=== PATIENT | female | born 1955 | race Two or more races ===

== ENCOUNTER 2024-03-06 08:44 | Emergency (ER) | payer MEDICARE, BC, SELFPAY ==
[2024-03-06 08:44] VITALS: BMI 28.3
--- NOTE | 2024-03-06 08:48 | EKG_ITS ---
[facility] Test Date: 2024-03-06 Pat Name: ISRAEL CAI Department: Room: - Gender: Female Etl [employer]form[employer] Developer: : 1955 Requested By: ED Temporary Provider Order Number: [id number] Reading MD: ED Temporary Provider Measurements Intervals [place] Rate: 69 P: 33 PA: 173 QRS: 0 QRSD: 73 T: 18 QT: 356 QTc: 383 Interpretive Statements SINUS RHYTHM LOW QRS VOLTAGE IN PRECORDIAL LEADS [QRS DEFLECTION < 1.0 mV IN CHEST LEADS] POSSIBLE ANTERIOR MYOCARDIAL INFARCTION , OF INDETERMINATE AGE [30 ms Q WAVE IN V3/V4, OR R < 0.2 mV IN V4] Compared to ECG 10/16/2021 12:11:19 Low QRS voltage now present Myocardial infarct finding now present /store/S0/[id number].pdf
[2024-03-06 09:06] VITALS: BP 128/68; PULSE 71; RESP 19; TEMP 37.2; O2SAT 98
--- NOTE | 2024-03-06 09:13 | XR_ITS ---
Examination: PA chest single view Technique: Upright PA chest single view Exam date and time: March 06, 2024 0928 hrs. Comparison October 03, 2023 Indications: Shortness of breath chest pressure beginning 2 days ago. Findings: Mild prominence of ventricle Mild vascular congestion No lobar pneumonia or pulmonary edema Impression: Mild vascular congestion
--- NOTE | 2024-03-06 09:14 | PD.EDRME ---
Rapid Medical Screening Exam RME Arrival date/time: 03/06/24 08:44 Chief Complaint: Chest Pain Time Seen by Provider: 03/06/24 09:06 Vital signs: Vital Signs Temperature 98.9 F 03/06/24 09:06 Pulse Rate 71 03/06/24 09:06 Respiratory Rate 19 03/06/24 09:06 Blood Pressure 128/68 03/06/24 09:06 Pulse Oximetry (%) 98 03/06/24 09:06 Oxygen Delivery Method Room Air 03/06/24 09:06 RME Narrative: Intermittent mid-sternal chest pressure since 0400 this morning.
[2024-03-06 09:56] LABS: Basophils % (Auto) 0 % (0-2.5); Eosinophils # (Auto) 0.1 Thou/mm3 (0.0-0.5); Eosinophils % (Auto) 1 % (0-10); Hematocrit 38.1 % (36.0-46.0); Hemoglobin 12.8 g/dL (12.0-16.0); Immature Granulocytes % (Auto) 0 % (0-0); Immature Granulocytes Auto 0.02 Thou/mm3 (0.00-0.00); Lymphocytes # (Auto) 1.6 Thou/mm3 (1.0-4.8); Lymphocytes % (Auto) 17 % (10-50); Mean Corpuscular HGB Conc 33.6 g/dl (31.0-37.0); Mean Corpuscular Hemoglobin 30.7 pg (25.0-35.0); Mean Corpuscular Volume 91 fL (80-100); Monocytes # (Auto) 0.7 Thou/mm3 (0.0-0.8); Monocytes % (Auto) 7 % (0-12); Neutrophils # (Auto) 7.2 Thou/mm3 (1.8-7.7); Neutrophils % (Auto) 75 % (37-80); Nucleated Red Blood Cell % 0 /100 WBC (0); Platelet Count 283 Thou/mm3 (140-440); RDW Standard Deviation 44.1 fL (36.4-46.3); Red Blood Count 4.17 Miln/mm3 (4.00-5.20); White Blood Count 9.7 Thou/mm3 (3.6-11.0)
[2024-03-06 10:19] LABS: B-Type Natriuretic Peptide 33 pg/mL (0-100)
[2024-03-06 10:20] LABS: Alanine Aminotransferase 17 U/L (10-49); Albumin, Serum 4.8 gm/dL (3.4-4.8); Albumin/Globulin Ratio 1.8 (1.2-2.2); Alkaline Phosphatase 123 U/L (46-116); Anion Gap 8 (7-16); Aspartate Amino Transferase 19 U/L (0-34); BUN/Creatinine Ratio 19 Ratio (12-20); Bilirubin,Total 0.7 mg/dL (0.3-1.2); Blood Urea Nitrogen 19 mg/dL (9-23); Calcium 9.6 mg/dL (8.3-10.6); Calcium (Corrected) 9.6 mg/dL (8.5-10.1); Carbon Dioxide 26.1 mMol/L (20.0-31.0); Chloride 103 mMol/L (98-107); Estimated Creatinine Clearance 47.5 mL/min (>60); Globulin 2.7 gm/dL (2.3-3.5); Glucose 104 mg/dL (74-106); Osmolality,Calculated 276 (275-295); Potassium 4.2 mMol/L (3.4-5.1); Sodium 137 mMol/L (136-145); Total Protein 7.5 gm/dL (5.7-8.2); Troponin I < 0.002 ng/mL (0.0-0.045); eGFR > 60 See Note
--- NOTE | 2024-03-06 11:12 | EDNOTE_ITS ---
ED General RME/HPI General Chief complaint: Chest Pain Stated complaint: CHEST PRESSURE ON/OFF SINCE 0300 TODAY Time Seen by Provider: 03/06/24 09:06 Arrival date/time: 03/06/24 08:44 CC: Chest pain chest pressure HPI ongoing since 4 AM lasted approximately 45 minutes until 4:45, intermittent in nature 4-5 out of 10 scale maximum currently is absent the patient has a history of a heart attack [address] Damico is her PCP currently she has no pain whatsoever patient denies shortness of breath or difficulty breathing. RME / HPI RME / HPI narrative: Intermittent mid-sternal chest pressure since 0400 this morning. Related Data Home Medications ?Medication ?Instructions ?Recorded ?Confirmed albuterol sulfate 90 mcg/actuation 2 puff PO BID PRN SHORTNESS OF 08/21/09 aerosol inhaler (ProAir HFA) BREATH ##0 beclomethasone dipropionate 40 2 puff PO BID PRN SHORTNESS OF 08/21/09 mcg/actuation aerosol inhaler BREATH ##0 (Qvar) clopidogrel 75 mg tablet (Plavix) 75 mg PO QDAY #0 tabs 06/24/14 aspirin 81 mg chewable tablet 81 mg PO QDAY ##0 07/13/16 atorvastatin 20 mg tablet (Lipitor) 20 mg PO HS #0 tabs 07/13/16 ciprofloxacin HCl 500 mg tablet 500 mg PO BID #0 tabs 07/13/16 folic acid 1 mg tablet 1 mg PO QDAY #0 tabs 07/13/16 nitroglycerin 0.4 mg sublingual 0.4 mg SL PRN PRN ANXIETY #0 tabs 07/13/16 tablet (Nitrostat) Previous Rx's ?Medication ?Instructions ?Recorded omeprazole 20 mg capsule,delayed 20 mg PO QDAY PRN GERD #30 caps 06/22/14 release tramadol 50 mg tablet (Ultram) 1 - 2 tab PO Q6HR PRN ABDOMINAL 07/13/16 PAIN #20 tabs azelastine 137 mcg (0.1 %) nasal 2 spray intranasal QDAY #30 mL 08/08/19 spray losartan 25 mg tablet 25 mg PO QDAY #30 tabs 10/16/21 metoclopramide HCl 5 mg tablet 5 mg PO BID 30 days #60 tabs 05/02/22 (Reglan) pantoprazole 40 mg tablet,delayed 40 mg PO BID 30 days #60 tabs 05/02/22 release (Protonix) Allergies Allergy/AdvReac Type Severity Reaction Status Date / Time codeine Allergy Severe RASH Verified 03/06/24 08:47 Review of Systems Review of Systems Narrative Review of Systems: GEN: No fever, no chills, no weight loss EYES: No discharge, no visual changes, no pain HEENT: No ear pain, no congestion, no sore throat PULM: No shortness of breath, no cough, no congestion CV: + chest pain, no dyspnea on exertion, no palpitations GI: No nausea, no vomiting, no diarrhea, no pain, no constipation : No frequency, no urgency, no dysuria MUSC/SKEL: No joint pain, no back pain SKIN: No rash PSYCH: No hallucinations, no depression HEME/LYMPH: No easy bleeding or bruising tendencies NEURO: No weakness, no headache Past Medical History Past Medical History NEUROLOGIC: Positive Neurological Disorders and Seizures CARDIAC: Positive Cardiac Disorders, Myocardial Infarction, Hypercholesterolemia and Hypertension; Negative Congestive Heart Failure RESPIRATORY: Positive Asthma; Negative Chronic Obstructive Pulmonary Disease (COPD) GASTROINTESTINAL: Positive Gastrointestinal Disorders (esophageal stricture) and Hiatal Hernia GENITOURINARY: Positive Genitourinary Disorders (pt does not know name of disease); Negative Renal Disease REPRODUCTIVE: Positive Previous Pregnancies MUSCULOSKELETAL: Negative Musculoskeletal Disorders ENDOCRINE: Negative Endocrine Disorders, Diabetes Mellitus Type 1 or Diabetes Mellitus Type 2 (prediabetic) HEMATOLOGIC: Positive Blood Disorders and Clotting Problems OTHER HISTORY: Positive Chicken Pox and Measles; Negative Blood Transfusions, Anesthesia Reactions or Cancer Surgical History SURGICAL: Positive Lumpectomy (left) and Hysterectomy Social History SMOKING STATUS: Never smoker SUBSTANCE USE: does not use ED Exam Narrative Physical exam: [General: Not in any acute distress Head normocephalic HEENT: Within acceptable limits Neck is supple nontender Chest equal chest rise nontender to palpation Respiratory: Clear to auscultation no wheezes crackles or rubs CV: Rate rhythm is regular no murmurs rubs or clicks Abdomen is distended secondary to body habitus soft nontender no masses positive bowel sounds all 4 quadrants Back: No CVA tenderness no spinous process tenderness from cervical spine thoracic and lumbar spine Skin: Intact no petechiae rash induration ulceration or crepitus Extremities: Moving all extremity against resistance cap refill less than 2 seconds neurosensory intact Neuro: Awake alert oriented x3 Glascow coma 15 no focal deficits] Course Quality Measures none Orders Category Date Time Status EKG (ED ONLY) *Do not use* NOW Care 03/06/24 08:48 Completed CXR [XR chest 1V] Stat Exams 03/06/24 09:13 Completed EKG (ED Only) Stat Exams 03/06/24 08:48 Draft BNP [B-Type Natriuretic Peptide] Stat Lab 03/06/24 09:44 Completed CBC Stat Lab 03/06/24 09:44 Completed CMP [Comprehensive Metabolic Panel] Stat Lab 03/06/24 09:44 Completed Troponin I Stat Lab 03/06/24 09:44 Completed Troponin I Stat Lab 03/06/24 11:22 Completed Vital Signs Vital signs: Vital Signs Temperature 98.9 F 03/06/24 09:06 Pulse Rate 71 03/06/24 09:06 Respiratory Rate 19 03/06/24 09:06 Blood Pressure 128/68 03/06/24 09:06 Pulse Oximetry (%) 98 03/06/24 09:06 Oxygen Delivery Method Room Air 03/06/24 09:06 [facility] Patient data External records reviewed:: [facility] previous records Clinical information provided by:: patient Social determinants that could affect healthcare access:: none Patient has the following chronic illnesses:: Diabetes hypertension reported mild heart attack 10 years ago How is presenting disease/condition affected by chronic disease/condition?: u neffected by Evaluation data The following diagnostics were reviewed and interpreted by me:: lab results, radiology exam(s) and EKG tracing(s) Lab and/or radiology exams considered but not ordered:: EKG performed at 902 shows a ventricular rate of 6 9. Normal 173 QRS of 7 3 QTc of 375 this is sinus rhythm when compared to old EKG of September 2021 there are no significant changes CBC shows no acute leukocytosis anemia thrombocytopenia CMP shows no acute electrolyte imbalances other than mildly elevated glucose, no renal impairment transaminitis or T. bili elevation Troponin is negative BNP is negative Chest x-ray as interpreted by me read by radiology shows some mild vascular congestion Urine is unremarkable. Delta troponin is unremarkable. Interpretation Summary: Chest pain unknown cause patient will be discharged to follow-up with Dr. Damico. Medications Medications considered but not ordered:: None Medication administrations:: None Consultations Consultation(s) initiated? (list below): No Diagnosis Differential Diagnosis ED Complaint MDM: ACS NV pneumonia Most likely diagnosis given after review of the tests above:: Chest pain Admission Indicated Admission indicated?: not indicated Explain why admission is indicated or not indicated:: Stable for outpatient follow-up Admission Request Was there a request for admission?: No Disposition Plan Disposition Plan: Discharge Discharge Attestation Discharge Attestation: The patient and all family members were given an opportunity to ask questions and understood the discharge instructions. Discharge instructions specifically effects, indications for sooner follow up or return to the emergency department, and the expected course of current diagnosis. Patient condition: Stable Medical Decision Making Differential Diagnosis Differential Diagnosis: ACS NV pneumonia Lab Data 03/06/24 09:44 03/06/24 09:44 Labs: Lab Results 03/06/24 03/06/24 Range/Units 09:44 11:22 WBC 9.7 (3.6-11.0) Thou/mm3 RBC 4.17 (4.00-5.20) Miln/mm3 Hgb 12.8 (12.0-16.0) g/dL Hct 38.1 (36.0-46.0) % MCV 91 (80-100) fL MCH 30.7 (25.0-35.0) pg MCHC 33.6 (31.0-37.0) g/dl RDW Std Deviation 44.1 (36.4-46.3) fL Plt Count 283 (140-440) Thou/mm3 Neut % (Auto) 75 (37-80) % Lymph % (Auto) 17 (10-50) % [place] % (Auto) 7 (0-12) % Eos % (Auto) 1 (0-10) % Baso % (Auto) 0 (0-2.5) % Neut # (Auto) 7.2 (1.8-7.7) Thou/mm3 Lymph # (Auto) 1.6 (1.0-4.8) Thou/mm3 [place] # (Auto) 0.7 (0.0-0.8) Thou/mm3 Eos # (Auto) 0.1 (0.0-0.5) Thou/mm3 Baso # (Auto) 0.0 (0.0-0.2) Thou/mm3 Immature Gran # (Auto) 0.02 H (0.00-0.00) Thou/mm3 Absolute Nucleated RBC 0.00 (0.00-0.00) Thou/mm3 Immature Gran % 0 (0-0) % Nucleated RBC % 0 (0) /100 WBC Sodium 137 (136-145) mMol/L Potassium 4.2 (3.4-5.1) mMol/L Chloride 103 (98-107) mMol/L Carbon Dioxide 26.1 (20.0-31.0) mMol/L Anion Gap 8 (7-16) BUN 19 (9-23) mg/dL Creatinine 1.0 (0.6-1.3) mg/dL Estim Creat Clear Calc 47.5 L (>60) mL/min eGFR > 60 (60 - ) See Note BUN/Creatinine Ratio 19 (12-20) Ratio Glucose 104 (74-106) mg/dL Calculated Osmolality 276 (275-295) Calcium 9.6 (8.3-10.6) mg/dL Corrected Calcium 9.6 (8.5-10.1) mg/dL Total Bilirubin 0.7 (0.3-1.2) mg/dL AST 19 (0-34) U/L ALT 17 (10-49) U/L Alkaline Phosphatase 123 H (46-116) U/L Troponin I < 0.002 < 0.002 (0.0-0.045) ng/mL B-Natriuretic Peptide 33 (0-100) pg/mL Total Protein 7.5 (5.7-8.2) gm/dL Albumin 4.8 (3.4-4.8) gm/dL Globulin 2.7 (2.3-3.5) gm/dL Albumin/Globulin Ratio 1.8 (1.2-2.2) Discharge Plan Plan Patient Disposition: HOME (Self Care) Patient condition on transfer: Stable Prescriptions/Referrals Prescriptions/Med Rec: No Action albuterol sulfate [ProAir HFA] 8.5 GM HFA aerosol inhaler 2 puff PO BID PRN (Reason: SHORTNESS OF BREATH) Qty: 0 beclomethasone dipropionate [Qvar] 7.3 GM aerosol 2 puff PO BID PRN (Reason: SHORTNESS OF BREATH) Qty: 0 omeprazole 20 MG capsule,delayed release(DR/EC) 20 mg PO QDAY PRN (Reason: GERD) Qty: 30 1RF clopidogrel [Plavix] 75 MG tablet 75 mg PO QDAY Qty: 0 ciprofloxacin HCl 500 MG tablet 500 mg PO BID Qty: 0 atorvastatin [Lipitor] 20 MG tablet 20 mg PO HS Qty: 0 nitroglycerin [Nitrostat] 0.4 MG tablet, sublingual 0.4 mg SL PRN PRN (Reason: ANXIETY) Qty: 0 aspirin 81 MG tablet,chewable 81 mg PO QDAY Qty: 0 folic acid 1 MG tablet 1 mg PO QDAY Qty: 0 tramadol [Ultram] 50 MG tablet 1 - 2 tab PO Q6HR PRN (Reason: ABDOMINAL PAIN) Qty: 20 0RF Hold Instructions: Resume on 05/03/22. HOLD FOR TODAY, MAY RESUME TOMORROW. Rx Instructions: FOR PAIN, NOT TO EXCEED 8 TABS IN 24 HRS losartan 25 mg tablet 25 mg PO QDAY Qty: 30 0RF azelastine 137 mcg (0.1 %) aerosol,spray 2 spray INTRANASAL QDAY Qty: 30 0RF Rx Instructions: administer into each nostril pantoprazole [Protonix] 40 mg Tablet,Delayed Release (Dr/Ec) 40 mg PO BID 30 Days Qty: 60 2RF metoclopramide HCl [Reglan] 5 mg Tablet 5 mg PO BID 30 Days Qty: 60 2RF Referrals: Grey Alicea MD [Primary Care Provider] - In 1 week Eugenio Damico MD [Physician] - In 1 week Problem List Clinical Impression: Chest pain Patient/Caregiver Discharge Instructions Education Materials: ED Chest Pain, Uncertain Cause Additional Instructions: Take all medications as prescribed 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 Print Language: Chilean Stand Alone Forms: Kasia Award Info., Patient Portal Info Letter, Work/School Release PA/COMPLIANCE DIRECTOR Supervising Physician PA/COMPLIANCE DIRECTOR Supervising Physician: David Ryan ENP
[2024-03-06 11:47] LABS: Troponin I < 0.002 ng/mL (0.0-0.045)
[2024-03-06 11:51] VITALS: BP 149/69; PULSE 60; RESP 15; TEMP 36.8; O2SAT 99
== END 2024-03-06 12:10 | disposition home or self-care (01) ==
PROVIDERS: Physician Assistant; Registered Nurse General Practice; Emergency Provider Emergency Medicine; PCP Specialist
DX: R07.89 Other chest pain (principal); R09.89 Other specified symptoms and signs involving the circulatory and respiratory systems; R94.31 Abnormal electrocardiogram [ECG] [EKG]; I10 Essential (primary) hypertension; I25.2 Old myocardial infarction; E78.00 Pure hypercholesterolemia, unspecified
CPT/HCPCS: 36415; 71045; 80053; 83880; 84484; 85025; 93005; 99283

== ENCOUNTER 2024-03-26 07:14 | Emergency (ER) | payer MEDICARE, SELFPAY ==
--- NOTE | 2024-03-26 | XR_ITS ---
Examination: MRI of brain without intravenous contrast. MRI brain with intravenous contrast. Date and time of exam:March 26, 2024 1230 hrs. Comparison: CT brain scan March 26, 2024 0840 hrs. Indications: Dizziness headaches today, subtle hemorrhage left temporal lobe tip on CT brain scan March 26, 2024 0840 hrs. Technique: Multiple axial and sagittal images of the brain to been obtained. Siemens high-resolution 1.52 Toya short bore scanner utilized. Sagittal sections, T1 weighted images, TR 500, TE 14, are performed. Axial sections proton-density and T2-weighted images have been obtained. Inversion recovery axial images, TR 9260, TE 111, TR 2500. Diffusion weighted images, axial sections, TR 4800, TE 128, B value 1000. Axial sections, ADC map, TR 4800, TE 128. Axial and coronal images were also obtained post 19 cc gadolinium administered intravenously. Findings:: Enlargement of the sella turcica is not present. The optic chiasm and infundibular stalk are not remarkable. There is no localized enlargement of the medulla or aminata. Fourth ventricle and cerebellar tonsils appear normal in position. No subacute area of hemorrhage density is seen. Fourth ventricle is midline. Mass in the cerebellopontine angle region is not evident. 7th and 8th nerve complexes exhibit symmetry Globes are symmetrical Orbital musculature including medial lateral rectus muscles do not exhibit abnormality Increased white matter signal is mild Effacement of the cortical sulcal markings is not identified. Mass effect upon the ventricular system is not identified. Diffusion-weighted images demonstrate no focus of restricted diffusion Contrast images demonstrate no abnormal enhancement Impression: Negative for acute hemorrhage, mass effect or midline shift No acute infarct No definite hemorrhage is confirmed in the temporal lobe tip on the FLAIR or T1-weighted images I would still recommend close clinical observation and repeat CT brain scan in 24 hours
--- NOTE | 2024-03-26 | XR_ITS ---
Examination: MR brain with intravenous contrast Exam date and time: March 26, 2022 1251 hrs. Comparison: CT brain scan March 26, 2024 0840 hrs. Indications: Headache dizziness today, suspicious for subarachnoid hemorrhage left temporal lobe tip on CT brain scan today Technique And Findings: Multiple MRA images brain post intravenous administration 19 cc gadolinium 3-D reconstructions, 3-D post processing maximum intensity projection images Findings: Satisfactory filling M1 segments middle cerebral arteries middle cerebral artery trifurcation vessels, basilar artery, posterior cerebral branches as well as anterior cerebral arteries No cerebral aneurysm noted No arterial spasm Impression: No cerebral aneurysm or arterial spasm noted
[2024-03-26 07:52] VITALS: BP 126/55; PULSE 65; RESP 16; TEMP 36.9; O2SAT 98; BMI 25.7
--- NOTE | 2024-03-26 08:20 | XR_ITS ---
Examination: CT brain head without contrast. 2-D sagittal coronal reconstructions Date and time of exam:March 26, 2024 0840 hrs. Indications: Onset headache this morning Comparison: June 02, 2021 CTDI: vol (mGy):47 DLP: (mGycm):926 Technique: Multiple CT axial sections of the brain have been obtained, 5 mm slice thickness. Contrast has not been administered. 2-D sagittal, coronal reconstructions have been obtained Low dose protocols were performed. One or more of the following dose reduction techniques were used; automated exposure control, adjustment of the mA and/or KV according to patient size, use of iterative reconstruction technique. Findings: No significant ventricular enlargement. Subtle hyperdensity at the left temporal lobe tip, axial image 27, sagittal image 13 No mass effect or midline shift Basal cisterns are not remarkable. Fourth ventricle is midline. Cranial vault intact. Impression: Suspicious for subarachnoid hemorrhage at the left temporal lobe tip, axial image 27 Recommend brain MRI MRA follow-up pre and postcontrast
--- NOTE | 2024-03-26 08:21 | PD.EDHA ---
ED Headache RME/HPI General Chief Complaint: Headache Stated Complaint: SHOOTING LEFT HEAD PAIN; NO MEDS TAKEN Time Seen by Provider: 03/26/24 08:20 Arrival date/time: 03/26/24 07:14 RME / HPI RME / HPI Narrative: 68-year-old female patient presents emergency department with complaint of shooting pain to the left side head that started at 4 AM this morning. Patient denies ever having a pain like this. Patient denies phonophobia or photophobia. Patient denies unusual stress at home. Patient denies numbness and tingling to bilateral upper extremity. Patient denies neck pain. Patient denies trauma. Patient denies focal weakness. Patient states she currently has no pain but when the shooting pain occurs she rates it as an 8 out of 10. Related Data Home Medications ?Medication ?Instructions ?Recorded ?Confirmed albuterol sulfate 90 mcg/actuation 2 puff PO BID PRN SHORTNESS OF 08/21/09 aerosol inhaler (ProAir HFA) BREATH ##0 beclomethasone dipropionate 40 2 puff PO BID PRN SHORTNESS OF 08/21/09 mcg/actuation aerosol inhaler BREATH ##0 (Qvar) clopidogrel 75 mg tablet (Plavix) 75 mg PO QDAY #0 tabs 06/24/14 aspirin 81 mg chewable tablet 81 mg PO QDAY ##0 07/13/16 atorvastatin 20 mg tablet (Lipitor) 20 mg PO HS #0 tabs 07/13/16 ciprofloxacin HCl 500 mg tablet 500 mg PO BID #0 tabs 07/13/16 folic acid 1 mg tablet 1 mg PO QDAY #0 tabs 07/13/16 nitroglycerin 0.4 mg sublingual 0.4 mg SL PRN PRN ANXIETY #0 tabs 07/13/16 tablet (Nitrostat) Previous Rx's ?Medication ?Instructions ?Recorded omeprazole 20 mg capsule,delayed 20 mg PO QDAY PRN GERD #30 caps 06/22/14 release tramadol 50 mg tablet (Ultram) 1 - 2 tab PO Q6HR PRN ABDOMINAL 07/13/16 PAIN #20 tabs azelastine 137 mcg (0.1 %) nasal 2 spray intranasal QDAY #30 mL 08/08/19 spray losartan 25 mg tablet 25 mg PO QDAY #30 tabs 10/16/21 metoclopramide HCl 5 mg tablet 5 mg PO BID 30 days #60 tabs 05/02/22 (Reglan) pantoprazole 40 mg tablet,delayed 40 mg PO BID 30 days #60 tabs 05/02/22 release (Protonix) Allergies Allergy/AdvReac Type Severity Reaction Status Date / Time codeine Allergy Severe RASH Verified 03/26/24 07:15 Course Orders Category Date Time Status CT head/brain wo con Stat Exams 03/26/24 08:20 Completed Vital Signs Vital signs: Vital Signs Temperature 98.5 F 03/26/24 07:52 Pulse Rate 65 03/26/24 07:52 Respiratory Rate 16 03/26/24 07:52 Blood Pressure 126/55 L 03/26/24 07:52 Pulse Oximetry (%) 98 03/26/24 07:52 Oxygen Delivery Method Room Air 03/26/24 07:52 Discharge Plan Prescriptions/Referrals Prescriptions/Med Rec: No Action albuterol sulfate [ProAir HFA] 8.5 GM HFA aerosol inhaler 2 puff PO BID PRN (Reason: SHORTNESS OF BREATH) Qty: 0 beclomethasone dipropionate [Qvar] 7.3 GM aerosol 2 puff PO BID PRN (Reason: SHORTNESS OF BREATH) Qty: 0 omeprazole 20 MG capsule,delayed release(DR/EC) 20 mg PO QDAY PRN (Reason: GERD) Qty: 30 1RF clopidogrel [Plavix] 75 MG tablet 75 mg PO QDAY Qty: 0 ciprofloxacin HCl 500 MG tablet 500 mg PO BID Qty: 0 atorvastatin [Lipitor] 20 MG tablet 20 mg PO HS Qty: 0 nitroglycerin [Nitrostat] 0.4 MG tablet, sublingual 0.4 mg SL PRN PRN (Reason: ANXIETY) Qty: 0 aspirin 81 MG tablet,chewable 81 mg PO QDAY Qty: 0 folic acid 1 MG tablet 1 mg PO QDAY Qty: 0 tramadol [Ultram] 50 MG tablet 1 - 2 tab PO Q6HR PRN (Reason: ABDOMINAL PAIN) Qty: 20 0RF Hold Instructions: Resume on 05/03/22. HOLD FOR TODAY, MAY RESUME TOMORROW. Rx Instructions: FOR PAIN, NOT TO EXCEED 8 TABS IN 24 HRS losartan 25 mg tablet 25 mg PO QDAY Qty: 30 0RF azelastine 137 mcg (0.1 %) aerosol,spray 2 spray INTRANASAL QDAY Qty: 30 0RF Rx Instructions: administer into each nostril pantoprazole [Protonix] 40 mg Tablet,Delayed Release (Dr/Ec) 40 mg PO BID 30 Days Qty: 60 2RF metoclopramide HCl [Reglan] 5 mg Tablet 5 mg PO BID 30 Days Qty: 60 2RF Referrals: Grey Alicea MD [Primary Care Provider] - In 1 week Patient/Caregiver Discharge Instructions Print Language: Portuguese
--- NOTE | 2024-03-26 09:24 | PD.EDRME ---
Rapid Medical Screening Exam RME Arrival date/time: 03/26/24 07:14 Chief Complaint: Headache Time Seen by Provider: 03/26/24 08:20 Vital signs: Vital Signs Temperature 98.5 F 03/26/24 07:52 Pulse Rate 65 03/26/24 07:52 Respiratory Rate 16 03/26/24 07:52 Blood Pressure 126/55 L 03/26/24 07:52 Pulse Oximetry (%) 98 03/26/24 07:52 Oxygen Delivery Method Room Air 03/26/24 07:52 RME Narrative: 68-year-old female patient presents emergency department with complaint of shooting pain to the left side head that started at 4 AM this morning. Patient denies ever having a pain like this. Patient denies phonophobia or photophobia. Patient denies unusual stress at home. Patient denies numbness and tingling to bilateral upper extremity. Patient denies neck pain. Patient denies trauma. Patient denies focal weakness. Patient states she currently has no pain but when the shooting pain occurs she rates it as an 8 out of 10.
--- NOTE | 2024-03-26 11:02 | EDNOTE_ITS ---
ED Headache RME/HPI General Chief Complaint: Headache Stated Complaint: SHOOTING LEFT HEAD PAIN; NO MEDS TAKEN Time Seen by Provider: 03/26/24 08:20 Arrival date/time: 03/26/24 07:14 RME / HPI RME / HPI Narrative: 68-year-old female patient presents emergency department with complaint of shooting pain to the left side head that started at 4 AM this morning. Patient denies ever having a pain like this. Patient denies phonophobia or photophobia. Patient denies unusual stress at home. Patient denies numbness and tingling to bilateral upper extremity. Patient denies neck pain. Patient denies trauma. Patient denies focal weakness. Patient states she currently has no pain but when the shooting pain occurs she rates it as an [address] LUZ ELENA SANTILLAN ED EVALUATION: 68 year old female presents to the Emergency Department with complaint of left- sided headache onset 4 AM this morning. Pain is described as shooting pain and rated mild to moderate in severity. Patient denies any of the following: fevers, chills, vomiting, diarrhea, dysuria, gait problems, fall, injury, loss of consciousness, or any other symptoms at this time. PMHx: Peripheral vascular disease, hypertension, seizures, GERD, SC, hypercholesterolemia. Hysterectomy and cholecystectomy. Social Hx: No tobacco, alcohol, or substance use. Related Data Home Medications ?Medication ?Instructions ?Recorded ?Confirmed albuterol sulfate 90 mcg/actuation 2 puff PO BID PRN SHORTNESS OF 08/21/09 aerosol inhaler (ProAir HFA) BREATH ##0 beclomethasone dipropionate 40 2 puff PO BID PRN SHORTNESS OF 08/21/09 mcg/actuation aerosol inhaler BREATH ##0 (Qvar) clopidogrel 75 mg tablet (Plavix) 75 mg PO QDAY #0 tabs 06/24/14 aspirin 81 mg chewable tablet 81 mg PO QDAY ##0 07/13/16 atorvastatin 20 mg tablet (Lipitor) 20 mg PO HS #0 tabs 07/13/16 ciprofloxacin HCl 500 mg tablet 500 mg PO BID #0 tabs 07/13/16 folic acid 1 mg tablet 1 mg PO QDAY #0 tabs 07/13/16 nitroglycerin 0.4 mg sublingual 0.4 mg SL PRN PRN ANXIETY #0 tabs 07/13/16 tablet (Nitrostat) Previous Rx's ?Medication ?Instructions ?Recorded omeprazole 20 mg capsule,delayed 20 mg PO QDAY PRN GERD #30 caps 06/22/14 release tramadol 50 mg tablet (Ultram) 1 - 2 tab PO Q6HR PRN ABDOMINAL 07/13/16 PAIN #20 tabs azelastine 137 mcg (0.1 %) nasal 2 spray intranasal QDAY #30 mL 08/08/19 spray losartan 25 mg tablet 25 mg PO QDAY #30 tabs 10/16/21 metoclopramide HCl 5 mg tablet 5 mg PO BID 30 days #60 tabs 05/02/22 (Reglan) pantoprazole 40 mg tablet,delayed 40 mg PO BID 30 days #60 tabs 05/02/22 release (Protonix) Allergies Allergy/AdvReac Type Severity Reaction Status Date / Time codeine Allergy Severe RASH Verified 03/26/24 07:15 Review of Systems Review of Systems Systems Reviewed: All systems reviewed, normal except as documented Narrative Review of Systems: GEN: No fever, no chills, no weight loss EYES: No discharge, no visual changes, no pain HEENT: No ear pain, no congestion, no sore throat PULM: No shortness of breath, no cough, no congestion CV: No chest pain, no dyspnea on exertion, no palpitations GI: No nausea, no vomiting, no diarrhea, no pain, no constipation : No frequency, no urgency and no dysuria MUSC/SKEL: No joint pain, no back pain SKIN: No rash PSYCH: No hallucinations, no depression HEME/LYMPH: No easy bleeding or bruising tendencies NEURO: No weakness, + left-sided headache Past Medical History Past Medical History NEUROLOGIC: Positive Neurological Disorders and Seizures CARDIAC: Positive Cardiac Disorders, Myocardial Infarction, Hypercholesterolemia and Hypertension; Negative Congestive Heart Failure RESPIRATORY: Positive Asthma; Negative Chronic Obstructive Pulmonary Disease (COPD) GASTROINTESTINAL: Positive Gastrointestinal Disorders and Hiatal Hernia GENITOURINARY: Positive Genitourinary Disorders; Negative Renal Disease REPRODUCTIVE: Positive Previous Pregnancies MUSCULOSKELETAL: Negative Musculoskeletal Disorders ENDOCRINE: Negative Endocrine Disorders, Diabetes Mellitus Type 1 or Diabetes Mellitus Type 2 HEMATOLOGIC: Positive Blood Disorders and Clotting Problems OTHER HISTORY: Positive Chicken Pox and Measles; Negative Blood Transfusions, Anesthesia Reactions or Cancer Surgical History SURGICAL: Positive Lumpectomy and Hysterectomy Social History SMOKING STATUS: Never smoker SUBSTANCE USE: does not use ALCOHOL: Never ED Exam Narrative Physical exam: GENERAL APPEARANCE: Well hydrated, well nourished, in no acute distress. VITALS: All vitals were reviewed and the pulse ox is 100% on room air which is normal according to my interpretation. HEENT: Normocephalic, atramatic, EOMI, EACs are patent. There is no bulge or retraction. Throat without erythema or exudate. Moist oromucosa. No jaundice NECK: Supple, no JVD or bruits. CARDIOVASCULAR: Heart regular without S3-S4 or murmur. No rubs or gallops. LUNGS/CHEST: Clear to auscultation bilaterally. No rales, rhonchi, or wheezing. Normal inspection. ABDOMEN: Soft, nontender, with normal bowel sounds. No pulsatile masses. No rebound, rigidity, or guarding. No incarcerated hernia. Normal inspection and palpation. EXTREMITIES: No edema, clubbing, or cyanosis. Intact CSM. Normal inspection and palpation. SKIN: Warm and dry without rashes. Normal inspection. MUSCULOSKELETAL: No gross deformity, full ROM all extremities. Normal inspection. NEURO: Alert and oriented x3. Cranial nerves II through XII grossly intact. There are no other motor or sensory deficits noted. PSYCHIATRIC: Normal mood and affect. No psychosis. Course Quality Measures none Orders Category Date Time Status MRI Screening NOW Care 03/26/24 11:08 Active NPO NOW Care 03/26/24 11:09 Active Diet NPO (NOW) Diet 03/26/24 11:[address] head/brain wo con Stat Exams 03/26/24 08:20 Completed MR angio head w con Stat Exams 03/26/24 Completed MR head/brain wo/w con Stat Exams 03/26/24 Completed BMP [Basic Metabolic Panel] Stat Lab 03/26/24 11:23 Completed CBC Stat Lab 03/26/24 11:23 Completed PT [Prothrombin Time with INR] Stat Lab 03/26/24 11:23 Completed PTT [Partial Thromboplastin Time] Stat Lab 03/26/24 11:23 Completed Sodium Chloride 0.9% 1000 ml [Ns] 1,000 ml Med 03/26/24 11:05 Active IV 125 mls/hr Vital Signs Vital signs: Vital Signs Temperature 98.5 F 03/26/24 07:52 Pulse Rate 65 03/26/24 07:52 Respiratory Rate 16 03/26/24 07:52 Blood Pressure 126/55 L 03/26/24 07:52 Pulse Oximetry (%) 98 03/26/24 07:52 Oxygen Delivery Method Room Air 03/26/24 07:52 Headache MDM Narrative MDM Narrative:: I, Daniela Hendrix, am scribing for and in the presence of Dr. Sarmiento. CBC negative. BNP negative. CT head interpreted by me: No bleed. No mass. No shift. No swelling. Normal ventricle. Normal bones. And because the patient was recommended by Dr. Paul Haq, radiologist, to have a MRI of the head and MRA of the head. And she has been waiting here all day long to have the result done. And result came back negative for acute bleed mass shift or swelling. However according to Dr. Paul Haq, he still recommended a [address] brain. I spoke to the patient and daughter and both of them are very cooperative and they would mind coming back tomorrow in 24 hours for recheck and repeat his CAT scan of the brain. Patient data External records reviewed:: [facility] previous records (Reviewed last ED visit dated 03/06/24, discharged with the following: Chest pain.) Clinical information provided by:: patient and spouse Social determinants that could affect healthcare access:: none Patient has the following chronic illnesses:: Peripheral vascular disease, hypertension, seizures, GERD, SC, hypercholesterolemia. Hysterectomy and cholecystectomy. How is presenting disease/condition affected by chronic disease/condition?: exac erbated by Evaluation data The following diagnostics were reviewed and interpreted by me:: lab results and radiology exam(s) Lab and/or radiology exams considered but not ordered:: none Interpretation Summary: Procedure(s): CT head/brain wo [facility] Accession Number(s): [id number] cc: Grey Alicea MD; Paul Haq MD; Jacquelin Abbasi PA-C~ Examination: CT brain head without contrast. 2-D sagittal coronal reconstructions Date and time of exam:March 26, 2024 0840 hrs. Indications: Onset headache this morning Comparison: June 02, 2021 CTDI: vol (mGy):47 DLP: (mGycm):926 Technique: Multiple CT axial sections of the brain have been obtained, 5 mm slice thickness. Contrast has not been administered. 2-D sagittal, coronal reconstructions have been obtained Low dose protocols were performed. One or more of the following dose reduction techniques were used; automated exposure control, adjustment of the mA and/or KV according to patient size, use of iterative reconstruction technique. Findings: No significant ventricular enlargement. Subtle hyperdensity at the left temporal lobe tip, axial image 27, sagittal image 13 No mass effect or midline shift Basal cisterns are not remarkable. Fourth ventricle is midline. Cranial vault intact. Impression: Suspicious for subarachnoid hemorrhage at the left temporal lobe tip, axial image 27 Recommend brain MRI MRA follow-up pre and postcontrast Dictated By: Paul Haq MD Procedure(s): MR angio head w con Accession Number(s): [id number] cc: Grey Alicea MD; Paul Haq MD; Jean Carlos Sarmiento MD~ Examination: MR brain with intravenous contrast Exam date and time: March 26, 2022 1251 hrs. Comparison: CT brain scan March 26, 2024 0840 hrs. Indications: Headache dizziness today, suspicious for subarachnoid hemorrhage left temporal lobe tip on CT brain scan today Technique And Findings: Multiple MRA images brain post intravenous administration 19 cc gadolinium 3-D reconstructions, 3-D post processing maximum intensity projection images Findings: Satisfactory filling M1 segments middle cerebral arteries middle cerebral artery trifurcation vessels, basilar artery, posterior cerebral branches as well as anterior cerebral arteries No cerebral aneurysm noted No arterial spasm Impression: No cerebral aneurysm or arterial spasm noted Dictated By: Paul Haq MD Procedure(s): MR head/brain wo/w con Accession Number(s): [id number] cc: Grey Alicea MD; Paul Haq MD; Jean Carlos Sarmiento MD~ Examination: MRI of brain without intravenous contrast. MRI brain with intravenous contrast. Date and time of exam:March 26, 2024 1230 hrs. Comparison: CT brain scan March 26, 2024 0840 hrs. Indications: Dizziness headaches today, subtle hemorrhage left temporal lobe tip on CT brain scan March 26, 2024 0840 hrs. Technique: Multiple axial and sagittal images of the brain to been obtained. Siemens high-resolution 1.52 Toya short bore scanner utilized. Sagittal sections, T1 weighted images, TR 500, TE 14, are performed. Axial sections proton-density and T2-weighted images have been obtained. Inversion recovery axial images, TR 9260, TE 111, TR 2500. Diffusion weighted images, axial sections, TR 4800, TE 128, B value 1000. Axial sections, ADC map, TR 4800, TE 128. Axial and coronal images were also obtained post 19 cc gadolinium administered intravenously. Findings:: Enlargement of the sella turcica is not present. The optic chiasm and infundibular stalk are not remarkable. There is no localized enlargement of the medulla or aminata. Fourth ventricle and cerebellar tonsils appear normal in position. No subacute area of hemorrhage density is seen. Fourth ventricle is midline. Mass in the cerebellopontine angle region is not evident. 7th and 8th nerve complexes exhibit symmetry Globes are symmetrical Orbital musculature including medial lateral rectus muscles do not exhibit abnormality Increased white matter signal is mild Effacement of the cortical sulcal markings is not identified. Mass effect upon the ventricular system is not identified. Diffusion-weighted images demonstrate no focus of restricted diffusion Contrast images demonstrate no abnormal enhancement Impression: Negative for acute hemorrhage, mass effect or midline shift No acute infarct No definite hemorrhage is confirmed in the temporal lobe tip on the FLAIR or T1-weighted images I would still recommend close clinical observation and repeat CT brain scan in 24 hours Dictated By: Paul Haq MD Medications / Prescriptions Medications or Prescriptions considered but not ordered:: none Medication administrations:: Medication Administration History Sodium Chloride (Ns) 1,000 mls @ 125 mls/hr IV .Q8H ONE Stop: 03/26/24 19:04 Last Admin: 03/26/24 11:49 Dose: 125 mls/hr Documented By: ED see above Consultations Consultation(s) initiated? (list below): No Diagnosis Differential diagnosis headache: migraine, subarachnoid hemorrhage, headache and sinusitis Most likely diagnosis given after review of the tests above:: Headache Admission Indicated Admission indicated?: not indicated Admission Request Was there a request for admission?: No Disposition Plan Disposition Plan: Discharge Discharge Attestation Discharge Attestation: The patient and all family members were given an opportunity to ask questions an d understood the discharge instructions. Discharge instructions specifically effects, indications for sooner follow up or return to the emergency department, and the expected course of current diagnosis. Patient condition: Stable Discharge Plan Plan Patient Disposition: HOME (Self Care) Disposition Comment: Stable to go home Prescriptions/Referrals Prescriptions/Med Rec: No Action albuterol sulfate [ProAir HFA] 8.5 GM HFA aerosol inhaler 2 puff PO BID PRN (Reason: SHORTNESS OF BREATH) Qty: 0 beclomethasone dipropionate [Qvar] 7.3 GM aerosol 2 puff PO BID PRN (Reason: SHORTNESS OF BREATH) Qty: 0 omeprazole 20 MG capsule,delayed release(DR/EC) 20 mg PO QDAY PRN (Reason: GERD) Qty: 30 1RF clopidogrel [Plavix] 75 MG tablet 75 mg PO QDAY Qty: 0 ciprofloxacin HCl 500 MG tablet 500 mg PO BID Qty: 0 atorvastatin [Lipitor] 20 MG tablet 20 mg PO HS Qty: 0 nitroglycerin [Nitrostat] 0.4 MG tablet, sublingual 0.4 mg SL PRN PRN (Reason: ANXIETY) Qty: 0 aspirin 81 MG tablet,chewable 81 mg PO QDAY Qty: 0 folic acid 1 MG tablet 1 mg PO QDAY Qty: 0 tramadol [Ultram] 50 MG tablet 1 - 2 tab PO Q6HR PRN (Reason: ABDOMINAL PAIN) Qty: 20 0RF Hold Instructions: Resume on 05/03/22. HOLD FOR TODAY, MAY RESUME TOMORROW. Rx Instructions: FOR PAIN, NOT TO EXCEED 8 TABS IN 24 HRS losartan 25 mg tablet 25 mg PO QDAY Qty: 30 0RF azelastine 137 mcg (0.1 %) aerosol,spray 2 spray INTRANASAL QDAY Qty: 30 0RF Rx Instructions: administer into each nostril pantoprazole [Protonix] 40 mg Tablet,Delayed Release (Dr/Ec) 40 mg PO BID 30 Days Qty: 60 2RF metoclopramide HCl [Reglan] 5 mg Tablet 5 mg PO BID 30 Days Qty: 60 2RF Referrals: Grey Alicea MD [Primary Care Provider] - In 1 week Problem List Clinical Impression: Headache Patient/Caregiver Discharge Instructions Education Materials: Self-Care for Headaches Additional Instructions: Tylenol as needed for ache and pain. Return in [address] hours [address] head [address] As recommended by the radiologist. Return sooner if any problem. In the meantime no heavy exertion. No blood thinner. No heavy lifting. Print Language: Macanese Stand Alone Forms: [employer] Award Info., Patient Portal Info Letter
[2024-03-26 11:07] VITALS: BP 182/70; PULSE 55; RESP 19; TEMP 36.8; O2SAT 100
[2024-03-26 11:32] LABS: Basophils % (Auto) 1 % (0-2.5); Eosinophils # (Auto) 0.1 Thou/mm3 (0.0-0.5); Eosinophils % (Auto) 2 % (0-10); Hematocrit 35.7 % (36.0-46.0); Hemoglobin 11.9 g/dL (12.0-16.0); Immature Granulocytes % (Auto) 0 % (0-0); Immature Granulocytes Auto 0.01 Thou/mm3 (0.00-0.00); Lymphocytes # (Auto) 2.4 Thou/mm3 (1.0-4.8); Lymphocytes % (Auto) 34 % (10-50); Mean Corpuscular HGB Conc 33.3 g/dl (31.0-37.0); Mean Corpuscular Hemoglobin 30.7 pg (25.0-35.0); Mean Corpuscular Volume 92 fL (80-100); Monocytes # (Auto) 0.6 Thou/mm3 (0.0-0.8); Monocytes % (Auto) 9 % (0-12); Neutrophils # (Auto) 3.8 Thou/mm3 (1.8-7.7); Neutrophils % (Auto) 55 % (37-80); Nucleated Red Blood Cell % 0 /100 WBC (0); Platelet Count 257 Thou/mm3 (140-440); RDW Standard Deviation 45.1 fL (36.4-46.3); Red Blood Count 3.88 Miln/mm3 (4.00-5.20); White Blood Count 6.9 Thou/mm3 (3.6-11.0)
[2024-03-26 11:44] LABS: Anion Gap 8 (7-16); BUN/Creatinine Ratio 17 Ratio (12-20); Blood Urea Nitrogen 17 mg/dL (9-23); Carbon Dioxide 25.8 mMol/L (20.0-31.0); Chloride 106 mMol/L (98-107); Glucose 101 mg/dL (74-106); Osmolality,Calculated 280 (275-295); Potassium 4.1 mMol/L (3.4-5.1); Sodium 140 mMol/L (136-145); eGFR > 60 See Note
[2024-03-26] MEDS: SODIUM CHLORIDE 0.9% 1000 ML 1,000 ML 125 ML IV (11:49)
[2024-03-26 12:04] LABS: INR 0.9 (0.9-1.3); Partial Thromboplastin Time 23.6 Seconds (22.0-36.0); Prothrombin Time 10.1 Seconds (9.0-12.2)
[2024-03-26 13:11] VITALS: BP 168/81; PULSE 67; RESP 18; TEMP 36.9; O2SAT 100
[2024-03-26 15:25] VITALS: BP 161/68; PULSE 55; RESP 18; TEMP 36.7; O2SAT 99
== END 2024-03-26 18:20 | disposition home or self-care (01) ==
PROVIDERS: Emergency Provider Emergency Medicine; PCP Specialist
DX: R51.9 Headache, unspecified (principal)
CPT/HCPCS: 36415; 70450; 70545; 70553; 80048; 85025; 85610; 85730; 99285; A9579; J7030

== ENCOUNTER 2024-03-28 08:44 | Emergency (ER) | payer MEDICARE, BC, SELFPAY ==
[2024-03-28 09:20] VITALS: BP 149/89; PULSE 82; RESP 19; TEMP 36.6; O2SAT 98; BMI 25.8
--- NOTE | 2024-03-28 09:21 | XR_ITS ---
Examination: CT brain head without contrast. 2-D sagittal coronal reconstructions Date and time of exam:March 28, 2024 1031 hours Comparison March 26, 2024 INDICATIONS: Onset sharp left-sided head pain beginning 4 days ago, CT brain March 26, 2024 suspicious for subarachnoid hemorrhage left temporal lobe tip CTDI: vol (mGy):47.8 DLP: (mGycm):900 Technique: Multiple CT axial sections of the brain have been obtained, 5 mm slice thickness. Contrast has not been administered. 2-D sagittal, coronal reconstructions have been obtained Low dose protocols were performed. One or more of the following dose reduction techniques were used; automated exposure control, adjustment of the mA and/or KV according to patient size, use of iterative reconstruction technique. Findings: No significant ventricular enlargement. Intra-axial or extra-axial hemorrhage density is not seen. No mass effect or midline shift Basal cisterns are not remarkable. Fourth ventricle is midline. Cranial vault intact. Impression: Negative for acute hemorrhage, mass effect or midline shift No definite subarachnoid hemorrhage left temporal lobe tip is noted on this study Advise continued follow-up if sharp left-sided head pain persists
--- NOTE | 2024-03-28 09:53 | PD.EDHA ---
ED Headache RME/HPI General Chief Complaint: Headache Stated Complaint: REPEAT HEAD CT Time Seen by Provider: 03/28/24 09:21 Source: patient Arrival date/time: 03/28/24 08:44 68-year-old female with a history of hyperlipidemia, hypertension presents to the emergency room with a chief complaint of headaches. Patient states that she was seen here yesterday where she received a CT scan and an MRI and was told to return today for repeat CT scan to rule out a bleed in her head. Patient states her headaches have gotten significantly better. Mode of arrival: ambulatory Limitations: no limitations Related Data Home Medications ?Medication ?Instructions ?Recorded ?Confirmed albuterol sulfate 90 mcg/actuation 2 puff PO BID PRN SHORTNESS OF 08/21/09 aerosol inhaler (ProAir HFA) BREATH ##0 beclomethasone dipropionate 40 2 puff PO BID PRN SHORTNESS OF 08/21/09 mcg/actuation aerosol inhaler BREATH ##0 (Qvar) clopidogrel 75 mg tablet (Plavix) 75 mg PO QDAY #0 tabs 06/24/14 aspirin 81 mg chewable tablet 81 mg PO QDAY ##0 07/13/16 atorvastatin 20 mg tablet (Lipitor) 20 mg PO HS #0 tabs 07/13/16 ciprofloxacin HCl 500 mg tablet 500 mg PO BID #0 tabs 07/13/16 folic acid 1 mg tablet 1 mg PO QDAY #0 tabs 07/13/16 nitroglycerin 0.4 mg sublingual 0.4 mg SL PRN PRN ANXIETY #0 tabs 07/13/16 tablet (Nitrostat) Previous Rx's ?Medication ?Instructions ?Recorded omeprazole 20 mg capsule,delayed 20 mg PO QDAY PRN GERD #30 caps 06/22/14 release tramadol 50 mg tablet (Ultram) 1 - 2 tab PO Q6HR PRN ABDOMINAL 07/13/16 PAIN #20 tabs azelastine 137 mcg (0.1 %) nasal 2 spray intranasal QDAY #30 mL 08/08/19 spray losartan 25 mg tablet 25 mg PO QDAY #30 tabs 10/16/21 metoclopramide HCl 5 mg tablet 5 mg PO BID 30 days #60 tabs 05/02/22 (Reglan) pantoprazole 40 mg tablet,delayed 40 mg PO BID 30 days #60 tabs 05/02/22 release (Protonix) Allergies Allergy/AdvReac Type Severity Reaction Status Date / Time codeine Allergy Severe RASH Verified 03/26/24 07:15 Review of Systems Review of Systems Systems Reviewed: All systems reviewed, normal except as documented Constitutional Constitutional: Reports system reviewed and no additional complaints, except as documented, Denies fatigue, Denies fever(s), Reports headache(s) and Denies weakness Eyes Eyes: Reports system reviewed and no additional complaints, except as documented, Denies blurry vision and Denies change in vision ENT Ears, Nose, Mouth, and Throat: Reports system reviewed and no additional complaints, except as documented, Denies otalgia, Reports headache(s), Denies nasal congestion, Denies throat swelling and Denies vertigo Cardiovascular Cardiovascular: Reports system reviewed and no additional complaints, except as documented, Denies chest pain, Denies dyspnea and Denies dyspnea on exertion Respiratory Respiratory: Reports system reviewed and no additional complaints, except as documented, Denies chest congestion, Denies cough, Denies dyspnea, Denies dyspnea on exertion and Denies wheezing Gastrointestinal Gastrointestinal: Reports system reviewed and no additional complaints, except as documented, Denies abdominal pain, Denies cramping, Denies nausea and Denies vomiting Genitourinary Genitourinary: Reports system reviewed and no additional complaints, except as documented Musculoskeletal Musculoskeletal: Reports system reviewed and no additional complaints, except as documented and Denies back pain Integumentary/Breasts Skin/Breast: Reports system reviewed and no additional complaints, except as documented and Denies wounds Neurologic Neurologic: Reports system reviewed and no additional complaints, except as documented, Denies confusion, Reports headache(s), Denies lack of coordination, Denies vertigo and Denies weakness Psychiatric Psychiatric: Reports system reviewed and no additional complaints, except as documented, Denies anxiety, Denies confusion, Denies depression, Denies paranoia, Denies suicidal ideation and Denies tactile hallucinations Endocrine Endocrine: Reports system reviewed and no additional complaints, except as documented and Denies fatigue Hematologic/Lymphatic Hematologic/Lymphatic: Reports system reviewed and no additional complaints, except as documented and Denies lymphadenopathy Allergic/Immunologic Allergic/Immunologic: Reports system reviewed and no additional complaints, except as documented, Denies throat swelling, Denies urticaria and Denies wheezing ED Exam General Limitations: Present no limitations General appearance: Present alert and in no apparent distress Head Head exam: Present atraumatic Eye Eye exam: Present normal appearance, PERRL and EOMI ENT ENT exam: Present normal exam, normal oropharynx and mucous membranes moist Neck Neck exam: Present normal inspection, full ROM and trachea midline Chest Chest inspection: Present normal inspection and symmetric chest wall rise Respiratory Respiratory exam: Present normal lung sounds bilaterally Cardiovascular Cardiovascular exam: Present regular rate, normal rhythm and normal heart sounds Abdominal Exam Abdominal exam: Present soft and normal bowel sounds Extremities Exam Extremities exam: Present normal inspection and full ROM Back Exam Back exam: Present normal inspection and full ROM Neurological Exam Neurological exam: Present alert, oriented X3, CN II-XII intact, normal gait and reflexes normal Expanded Neurological Exam Patient oriented to: Present person, place and time Speech: Present fluid speech Cranial nerves: Normal: EOM function (II, III, IV, ), facial sensation (V) and facial palsy (VII) Cerebellar function: Normal: finger to nose Cerebellar function: Present normal gait Motor strength - LUE: 5/5 Motor strength - RUE: 5/5 Motor strength - LLE: 5/5 Motor strength - RLE: 5/5 Coma scale eye opening: spontaneous Coma scale motor response: obeys commands Coma scale verbal response: oriented Coma scale total: 15 Psychiatric Psychiatric exam: Present normal affect and normal mood Skin Skin exam: Present warm, dry, intact and normal color Course Quality Measures none Orders Category Date Time Status CT head/brain wo con Stat Exams 03/28/24 09:21 Completed Vital Signs Vital signs: Vital Signs Temperature 97.9 F 03/28/24 09:20 Pulse Rate 82 03/28/24 09:20 Respiratory Rate 19 03/28/24 09:20 Blood Pressure 149/89 H 03/28/24 09:20 Pulse Oximetry (%) 98 03/28/24 09:20 Oxygen Delivery Method Room Air 03/28/24 09:20 O2 saturation 98% within normal limits Headache MDM Narrative MDM Narrative:: 68-year-old female with a history of hyperlipidemia, hypertension presents to the emergency room with a chief complaint of headaches. Patient states that she was seen here yesterday where she received a CT scan and an MRI and was told to return today for repeat CT scan to rule out a bleed in her head. Patient states her headaches have gotten significantly better. Clinically the patient appears nontoxic and in no apparent distress. Patient states her symptoms of her headache are actually getting better. Physical examination shows a normal neurological exam. The patient is a GCS of 15 she is alert and oriented x 4. EOMs are intact. Pupils are PERRLA. The patient has a normal steady gait reflexes are intact. CT of the head and brain was repeated based on the recommendations of the radiologist yesterday. The new CT of the head and brain was negative for any subarachnoid hemorrhage mass effect or midline shift. Patient was discharged and educated to follow-up with primary care provider and return to the emergency room for any evidence of worsening signs or symptoms Patient data External records reviewed:: [facility] previous records Clinical information provided by:: patient Social determinants that could affect healthcare access:: none Patient has the following chronic illnesses:: No chronic illness How is presenting disease/condition affected by chronic disease/condition?: no chronic disease Evaluation data The following diagnostics were reviewed and interpreted by me:: lab results and radiology exam(s) Lab and/or radiology exams considered but not ordered:: Labs and radiology exams considered and ordered Interpretation Summary: CT of the head and brain-no subarachnoid hemorrhage mass effect or midline shift Medications / Prescriptions Medications or Prescriptions considered but not ordered:: No medication given Medication administrations:: No medication given Consultations Consultation(s) initiated? (list below): No Diagnosis Differential diagnosis headache: migraine, tension headache, subarachnoid hemorrhage and postconcussion syndrome Most likely diagnosis given after review of the tests above:: Headache Admission Indicated Admission indicated?: not indicated Admission Request Was there a request for admission?: No Disposition Plan Disposition Plan: Discharge Discharge Attestation Discharge Attestation: The patient and all family members were given an opportunity to ask questions and understood the discharge instructions. Discharge instructions specifically effects, indications for sooner follow up or return to the emergency department, and the expected course of current diagnosis. Patient condition: Stable Discharge Plan Plan Patient Disposition: HOME (Self Care) Disposition Comment: Stable Prescriptions/Referrals Prescriptions/Med Rec: No Action albuterol sulfate [ProAir HFA] 8.5 GM HFA aerosol inhaler 2 puff PO BID PRN (Reason: SHORTNESS OF BREATH) Qty: 0 beclomethasone dipropionate [Qvar] 7.3 GM aerosol 2 puff PO BID PRN (Reason: SHORTNESS OF BREATH) Qty: 0 omeprazole 20 MG capsule,delayed release(DR/EC) 20 mg PO QDAY PRN (Reason: GERD) Qty: 30 1RF clopidogrel [Plavix] 75 MG tablet 75 mg PO QDAY Qty: 0 ciprofloxacin HCl 500 MG tablet 500 mg PO BID Qty: 0 atorvastatin [Lipitor] 20 MG tablet 20 mg PO HS Qty: 0 nitroglycerin [Nitrostat] 0.4 MG tablet, sublingual 0.4 mg SL PRN PRN (Reason: ANXIETY) Qty: 0 aspirin 81 MG tablet,chewable 81 mg PO QDAY Qty: 0 folic acid 1 MG tablet 1 mg PO QDAY Qty: 0 tramadol [Ultram] 50 MG tablet 1 - 2 tab PO Q6HR PRN (Reason: ABDOMINAL PAIN) Qty: 20 0RF Hold Instructions: Resume on 05/03/22. HOLD FOR TODAY, MAY RESUME TOMORROW. Rx Instructions: FOR PAIN, NOT TO EXCEED 8 TABS IN 24 HRS losartan 25 mg tablet 25 mg PO QDAY Qty: 30 0RF azelastine 137 mcg (0.1 %) aerosol,spray 2 spray INTRANASAL QDAY Qty: 30 0RF Rx Instructions: administer into each nostril pantoprazole [Protonix] 40 mg Tablet,Delayed Release (Dr/Ec) 40 mg PO BID 30 Days Qty: 60 2RF metoclopramide HCl [Reglan] 5 mg Tablet 5 mg PO BID 30 Days Qty: 60 2RF Referrals: Grey Alicea MD [Primary Care Provider] - In 1 week Problem List Clinical Impression: Headache Patient/Caregiver Discharge Instructions Education Materials: Self-Care for Headaches Additional Instructions: Please follow-up with your primary care provider in the next [address] that was completed today was negative for any acute hemorrhage mass effect or midline shift. For any evidence of worsening signs or symptoms please return to the emergency room immediately Print Language: Indonesian Stand Alone Forms: Kasia Award Info., Patient Portal Info Letter PA/RAMP FLIGHT ATTENDANT Supervising Physician PA/RAMP FLIGHT ATTENDANT Supervising Physician: Dr Sarmiento
== END 2024-03-28 11:11 | disposition home or self-care (01) ==
PROVIDERS: Emergency Provider Emergency Medicine; PCP Specialist
DX: R51.9 Headache, unspecified (principal)
CPT/HCPCS: 70450; 99284

== ENCOUNTER 2024-03-31 06:40 | Day surgery (SDC) | payer MEDICARE, BC, SELFPAY ==
--- NOTE | 2024-03-30 07:00 | EKG_ITS ---
[facility] Test Date: 2024-03-30 Pat Name: ISRAEL CAI Department: Room: - Gender: Female Manager Supply: RT STUDENT : 1955 Requested By: Eugenio Damico Order Number: [id number] Reading MD: Eugenio Damico Measurements Intervals [place] Rate: 59 P: 47 MN: 173 QRS: -18 QRSD: 79 T: 28 QT: 354 QTc: 353 Interpretive Statements SINUS BRADYCARDIA Compared to ECG 03/06/2024 09:03:08 Sinus rhythm no longer present Myocardial infarct finding no longer present /[id number]/[id number].pdf
[2024-03-30 09:46] LABS: Basophils % (Auto) 1 % (0-2.5); Eosinophils # (Auto) 0.1 Thou/mm3 (0.0-0.5); Eosinophils % (Auto) 2 % (0-10); Hematocrit 34.4 % (36.0-46.0); Hemoglobin 11.5 g/dL (12.0-16.0); Immature Granulocytes % (Auto) 0 % (0-0); Immature Granulocytes Auto 0.02 Thou/mm3 (0.00-0.00); Lymphocytes # (Auto) 1.8 Thou/mm3 (1.0-4.8); Lymphocytes % (Auto) 28 % (10-50); Mean Corpuscular HGB Conc 33.4 g/dl (31.0-37.0); Mean Corpuscular Hemoglobin 30.7 pg (25.0-35.0); Mean Corpuscular Volume 92 fL (80-100); Monocytes # (Auto) 0.5 Thou/mm3 (0.0-0.8); Monocytes % (Auto) 8 % (0-12); Neutrophils # (Auto) 3.9 Thou/mm3 (1.8-7.7); Neutrophils % (Auto) 61 % (37-80); Nucleated Red Blood Cell % 0 /100 WBC (0); Platelet Count 237 Thou/mm3 (140-440); Red Blood Count 3.75 Miln/mm3 (4.00-5.20); White Blood Count 6.4 Thou/mm3 (3.6-11.0)
[2024-03-30 10:11] LABS: Anion Gap 6 (7-16); BUN/Creatinine Ratio 19 Ratio (12-20); Blood Urea Nitrogen 19 mg/dL (9-23); Carbon Dioxide 28.6 mMol/L (20.0-31.0); Chloride 106 mMol/L (98-107); Glucose 140 mg/dL (74-106); Osmolality,Calculated 285 (275-295); Potassium 3.8 mMol/L (3.4-5.1); Sodium 141 mMol/L (136-145); eGFR > 60 See Note
[2024-03-30 10:14] LABS: INR 0.9 (0.9-1.3); Partial Thromboplastin Time 22.9 Seconds (22.0-36.0); Prothrombin Time 10.3 Seconds (9.0-12.2)
[2024-03-31] VITALS (9 sets, daily range): BP systolic 119–177; BP diastolic 64–95; PULSE 52–67; RESP 11–18; TEMP 36.7–36.9; O2SAT 97–100; BMI 30.3
[2024-03-31] MEDS: DIAZEPAM 5 MG TABLET PO (07:10)
[2024-03-31] MEDS: SODIUM CHLORIDE 0.45 % 500 ML 100 ML IV (07:45)
--- NOTE | 2024-03-31 08:26 | ESOP_ITS ---
Cardiac Cath Procedure Procedure Narrative date of the procedure 03/31/2024 Title of the procedure 1. Left heart catheterization 2. Left coronary angiogram 3. Right coronary angiogram 4. Left ventriculogram 5. Conscious sedation 6. Radiographic interpretation supervision 7. Ultrasound guidence for Right radial access Indication for the procedure This is a 68-year-old female with past medical history of hypertension hyperlipidemia Complains of recurrent chest pain Patient did undergo prior stress test which was equivocal Patient continues to complain of chest pain therefore we decided to proceed with further evaluation with cardiac catheterization and coronary angiogram Procedure This is done in the cardiac lab under continuous electrocardiographic monitoring Intermittent blood pressure monitoring right radial arterial access obtained using modified Seldinger technique 6 Sinhala radial sheath was placed under ultrasound guidence TIG catheter was used for selective injection of the Left coronary artery TIG cather was used for selective injection of the Right coroanry artery TIG cather was used for LV gram Findings Hemodynamics Left ventricular systolic function is 55% Left ventricular end-diastolic pressure is 18 mmHg Gradient across the aortic valve is 0 mm gradient Coronary anatomy Right dominance Left main coronary artery is normal Left anterior descending artery is normal Diagonal vessel is luminal irregularities Left circumflex artery is showing normal Obtuse marginal vessel is showing luminal irregularities Right coronary artery is showing 30% lesion in the midsegment Posterior descending artery is showing luminal irregularities Conclusion No significant coronary lesion Recommendation Continue medical management
== END 2024-03-31 11:00 | disposition home or self-care (01) ==
PROVIDERS: PCP Specialist; Referring Provider Internal Medicine; Visit Provider Internal Medicine
PROC: (CPT 93458; principal; 2024-03-31 07:30)
DX: I25.118 Atherosclerotic heart disease of native coronary artery with other forms of angina pectoris (principal); E78.5 Hyperlipidemia, unspecified; I10 Essential (primary) hypertension; Z01.810 Encounter for preprocedural cardiovascular examination
CPT/HCPCS: 93458; 36415; 80048; 85025; 85610; 85730; 93005; 99152; A4216; A4649; C1769; C1887; C1894; J0171; J0461; J0583; J1643; J2250; J2310; J2371; J3010; J3490; J7040; Q9967; A9270; J2305

== ENCOUNTER → 2024-04-21 | Outpatient (CLI) | payer MEDICARE, BC, SELFPAY ==
[2024-04-21 11:25] LABS: Basophils % (Auto) 1 % (0-2.5); Eosinophils # (Auto) 0.2 Thou/mm3 (0.0-0.5); Eosinophils % (Auto) 2 % (0-10); Hematocrit 34.7 % (36.0-46.0); Hemoglobin 10.9 g/dL (12.0-16.0); Immature Granulocytes % (Auto) 0 % (0-0); Immature Granulocytes Auto 0.02 Thou/mm3 (0.00-0.00); Lymphocytes # (Auto) 1.9 Thou/mm3 (1.0-4.8); Lymphocytes % (Auto) 23 % (10-50); Mean Corpuscular HGB Conc 31.4 g/dl (31.0-37.0); Mean Corpuscular Hemoglobin 29.9 pg (25.0-35.0); Mean Corpuscular Volume 95 fL (80-100); Monocytes # (Auto) 0.6 Thou/mm3 (0.0-0.8); Monocytes % (Auto) 7 % (0-12); Neutrophils # (Auto) 5.6 Thou/mm3 (1.8-7.7); Neutrophils % (Auto) 67 % (37-80); Nucleated Red Blood Cell % 0 /100 WBC (0); Platelet Count 345 Thou/mm3 (140-440); RDW Standard Deviation 46.2 fL (36.4-46.3); Red Blood Count 3.65 Miln/mm3 (4.00-5.20); White Blood Count 8.3 Thou/mm3 (3.6-11.0)
[2024-04-21 11:51] LABS: Glucose Estimated Average 126 mg/dL (80-131)
[2024-04-21 11:55] LABS: Sed Rate (ESR) 16 mm/hr (0-30)
[2024-04-21 12:01] LABS: Creatinine MALB Rnd Ur 160 mg/dL (30-125); Microalbumin, Random Urine < 3 mg/L (0-300)
[2024-04-21 12:18] LABS: Alanine Aminotransferase 12 U/L (10-49); Albumin/Globulin Ratio 1.7 (1.2-2.2); Alkaline Phosphatase 112 U/L (46-116); Anion Gap 9 (7-16); Aspartate Amino Transferase 18 U/L (0-34); BUN/Creatinine Ratio 28 Ratio (12-20); Bilirubin,Total 0.3 mg/dL (0.3-1.2); Blood Urea Nitrogen 31 mg/dL (9-23); Calcium 9.2 mg/dL (8.3-10.6); Calcium (Corrected) 9.2 mg/dL (8.5-10.1); Carbon Dioxide 28.7 mMol/L (20.0-31.0); Cardiac Risk Estimate 3.4 RATIO (3.7-5.6); Chloride 108 mMol/L (98-107); Cholesterol 156 mg/dL (132-200); Creatinine (Component) 1.1 mg/dL (0.6-1.3); Globulin 2.4 gm/dL (2.3-3.5); Glucose 101 mg/dL (74-106); HDL Cholesterol 46 mg/dL (40-60); LDL Cholesterol,Calculated 75 mg/dL (0-130); Magnesium 1.9 mg/dL (1.6-2.6); Osmolality,Calculated 297 (275-295); Potassium 4.5 mMol/L (3.4-5.1); Sodium 146 mMol/L (136-145); Thyroid Stimulating Hormone 2.36 uIU/mL (0.55-4.78); Total Protein 6.4 gm/dL (5.7-8.2); Triglycerides 176 mg/dL (30-150); Uric Acid 5.1 mg/dL (3.1-7.8); eGFR 55 See Note
== END | disposition home or self-care (01) ==
LOC: COPL 10:23
PROVIDERS: PCP Specialist; Referring Provider Specialist; Visit Provider Specialist
DX: E11.69 Type 2 diabetes mellitus with other specified complication (principal); E78.2 Mixed hyperlipidemia; R25.2 Cramp and spasm; M10.9 Gout, unspecified
CPT/HCPCS: 36415; 80053; 80061; 82043; 82570; 83036; 83735; 84443; 84550; 85025; 85652

== ENCOUNTER → 2024-05-27 | Outpatient (CLI) | payer MEDICARE, BC, SELFPAY ==
--- NOTE | 2024-05-27 12:39 | XR_ITS ---
Examination: PA lateral chest 2 views TECHNIQUE: Upright AP lateral chest 2 views Exam date and time: May 27, 2024 1251 hours INDICATIONS: Coughing beginning 3 weeks ago. FINDINGS: Normal heart size. Lungs are clear. The osseous structures are intact IMPRESSION: No active disease
== END | disposition home or self-care (01) ==
LOC: CDIM 12:17
PROVIDERS: PCP Specialist; Referring Provider Specialist; Visit Provider Specialist
DX: R05.3 Chronic cough (principal)
CPT/HCPCS: 71046

== ENCOUNTER → 2024-07-18 | Outpatient (CLI) | payer MEDICARE, BC, SELFPAY ==
[2024-07-18 10:55] LABS: Anion Gap 9 (7-16); BUN/Creatinine Ratio 21 Ratio (12-20); Blood Urea Nitrogen 21 mg/dL (9-23); Calcium 9.3 mg/dL (8.3-10.6); Carbon Dioxide 25.7 mMol/L (20.0-31.0); Chloride 102 mMol/L (98-107); Glucose 101 mg/dL (74-106); Osmolality,Calculated 276 (275-295); Sodium 137 mMol/L (136-145); eGFR > 60 See Note
[2024-07-18 11:34] LABS: Basophils % (Auto) 1 % (0-2.5); Eosinophils # (Auto) 0.2 Thou/mm3 (0.0-0.5); Eosinophils % (Auto) 3 % (0-10); Hematocrit 39.6 % (36.0-46.0); Immature Granulocytes % (Auto) 0 % (0-0); Immature Granulocytes Auto 0.01 Thou/mm3 (0.00-0.00); Lymphocytes # (Auto) 1.9 Thou/mm3 (1.0-4.8); Lymphocytes % (Auto) 30 % (10-50); Mean Corpuscular HGB Conc 32.8 g/dl (31.0-37.0); Mean Corpuscular Hemoglobin 30.4 pg (25.0-35.0); Mean Corpuscular Volume 93 fL (80-100); Monocytes # (Auto) 0.5 Thou/mm3 (0.0-0.8); Monocytes % (Auto) 8 % (0-12); Neutrophils # (Auto) 3.7 Thou/mm3 (1.8-7.7); Neutrophils % (Auto) 58 % (37-80); Nucleated Red Blood Cell % 0 /100 WBC (0); Platelet Count 295 Thou/mm3 (140-440); Red Blood Count 4.28 Miln/mm3 (4.00-5.20); White Blood Count 6.4 Thou/mm3 (3.6-11.0)
[2024-07-18 12:34] LABS: INR 0.9 (0.9-1.3); Partial Thromboplastin Time 24.2 Seconds (22.0-36.0); Prothrombin Time 10.2 Seconds (9.0-12.2)
== END | disposition home or self-care (01) ==
LOC: COPL 08:46
PROVIDERS: PCP Specialist; Referring Provider Internal Medicine; Visit Provider Internal Medicine
DX: I25.10 Atherosclerotic heart disease of native coronary artery without angina pectoris (principal); I48.91 Unspecified atrial fibrillation
CPT/HCPCS: 36415; 80048; 85025; 85610; 85730

== ENCOUNTER → 2024-10-19 | Outpatient (CLI) | payer MEDICARE, BC, SELFPAY ==
[2024-10-19 13:32] LABS: Glucose Estimated Average 126 mg/dL (80-131); Hemoglobin A1C 6.0 % Hgb (4.8-6.0)
[2024-10-19 13:38] LABS: Alanine Aminotransferase 19 U/L (10-49); Albumin, Serum 4.3 gm/dL (3.4-4.8); Albumin/Globulin Ratio 1.7 (1.2-2.2); Alkaline Phosphatase 103 U/L (46-116); Anion Gap 10 (7-16); Aspartate Amino Transferase 22 U/L (0-34); BUN/Creatinine Ratio 16 Ratio (12-20); Bilirubin,Total 0.5 mg/dL (0.3-1.2); Blood Urea Nitrogen 18 mg/dL (9-23); Calcium 9.0 mg/dL (8.3-10.6); Calcium (Corrected) 9.0 mg/dL (8.5-10.1); Carbon Dioxide 26.1 mMol/L (20.0-31.0); Cardiac Risk Estimate 4.0 RATIO (3.7-5.6); Chloride 106 mMol/L (98-107); Cholesterol 190 mg/dL (132-200); Creatinine (Component) 1.1 mg/dL (0.6-1.3); Globulin 2.5 gm/dL (2.3-3.5); Glucose 100 mg/dL (74-106); HDL Cholesterol 48 mg/dL (40-60); LDL Cholesterol,Calculated 92 mg/dL (0-130); Osmolality,Calculated 285 (275-295); Potassium 3.7 mMol/L (3.4-5.1); Sodium 142 mMol/L (136-145); Total Protein 6.8 gm/dL (5.7-8.2); Triglycerides 250 mg/dL (30-150); eGFR 54 See Note
[2024-10-19 13:39] LABS: Creatinine MALB Rnd Ur 207 mg/dL (30-125); Microalbumin Creat Ratio 5 mg/gCrea (<30); Microalbumin, Random Urine 10 mg/L (0-300)
== END | disposition home or self-care (01) ==
PROVIDERS: PCP Specialist; Referring Provider Specialist; Visit Provider Specialist
DX: E11.65 Type 2 diabetes mellitus with hyperglycemia (principal); E78.2 Mixed hyperlipidemia
CPT/HCPCS: 36415; 80053; 80061; 82043; 82570; 83036

== ENCOUNTER → 2024-11-04 | Outpatient (CLI) | payer MEDICARE, BC, SELFPAY ==
--- NOTE | 2024-11-04 | XR_ITS ---
Examination: CT brain head without contrast. 2-D sagittal coronal reconstructions Date and time of exam:November 04, [address] brain scan March 28, 2024 INDICATIONS: Weakness dizziness beginning 3 months ago CTDI: vol (mGy):47.2 DLP: (mGycm):962 Technique: Multiple CT axial sections of the brain have been obtained, 5 mm slice thickness. Contrast has not been administered. 2-D sagittal, coronal reconstructions have been obtained Low dose protocols were performed. One or more of the following dose reduction techniques were used; automated exposure control, adjustment of the mA and/or KV according to patient size, use of iterative reconstruction technique. Findings: No significant ventricular enlargement. Intra-axial or extra-axial hemorrhage density is not seen. No mass effect or midline shift Basal cisterns are not remarkable. Fourth ventricle is midline. Cranial vault intact. Impression: Negative for acute hemorrhage, mass effect or midline shift As clinically warranted, if symptoms persist, consider CT brain scan, stroke protocol, follow-up
[2024-11-04 12:03] LABS: Basophils # (Auto) 0.1 Thou/mm3 (0.0-0.2); Basophils % (Auto) 1 % (0-2.5); Eosinophils # (Auto) 0.2 Thou/mm3 (0.0-0.5); Eosinophils % (Auto) 2 % (0-10); Hematocrit 39.2 % (36.0-46.0); Hemoglobin 12.7 g/dL (12.0-16.0); Immature Granulocytes Auto 0.02 Thou/mm3 (0.00-0.00); Lymphocytes # (Auto) 2.2 Thou/mm3 (1.0-4.8); Lymphocytes % (Auto) 30 % (10-50); Mean Corpuscular HGB Conc 32.4 g/dl (31.0-37.0); Mean Corpuscular Hemoglobin 30.6 pg (25.0-35.0); Mean Corpuscular Volume 95 fL (80-100); Monocytes # (Auto) 0.6 Thou/mm3 (0.0-0.8); Monocytes % (Auto) 9 % (0-12); Neutrophils # (Auto) 4.3 Thou/mm3 (1.8-7.7); Neutrophils % (Auto) 58 % (37-80); Nucleated Red Blood Cell # 0.00 Thou/mm3 (0.00-0.00); Nucleated Red Blood Cell % 0 /100 WBC (0); Platelet Count 283 Thou/mm3 (140-440); RDW Standard Deviation 45.6 fL (36.4-46.3); Red Blood Count 4.15 Miln/mm3 (4.00-5.20); White Blood Count 7.4 Thou/mm3 (3.6-11.0)
[2024-11-04 12:40] LABS: Sed Rate (ESR) 8 mm/hr (0-30)
[2024-11-04 15:41] LABS: Alanine Aminotransferase 19 U/L (10-49); Albumin, Serum 4.7 gm/dL (3.4-4.8); Albumin/Globulin Ratio 2.0 (1.2-2.2); Alkaline Phosphatase 115 U/L (46-116); Anion Gap 11 (7-16); Aspartate Amino Transferase 27 U/L (0-34); BUN/Creatinine Ratio 16 Ratio (12-20); Bilirubin,Total 0.5 mg/dL (0.3-1.2); Blood Urea Nitrogen 16 mg/dL (9-23); Calcium 9.8 mg/dL (8.3-10.6); Calcium (Corrected) 9.8 mg/dL (8.5-10.1); Carbon Dioxide 25.6 mMol/L (20.0-31.0); Chloride 105 mMol/L (98-107); Creatinine (Component) 1.0 mg/dL (0.6-1.3); Globulin 2.4 gm/dL (2.3-3.5); Glucose 96 mg/dL (74-106); Magnesium 2.1 mg/dL (1.6-2.6); Osmolality,Calculated 284 (275-295); Potassium 3.7 mMol/L (3.4-5.1); Sodium 142 mMol/L (136-145); Thyroid Stimulating Hormone 1.72 uIU/mL (0.55-4.78); Total Protein 7.1 gm/dL (5.7-8.2); Troponin I < 0.020 ng/mL (0.0-0.045); eGFR > 60 See Note
[2024-11-04 18:27] LABS: C-Reactive Protein 2.2 mg/dL (0.0-0.9)
== END | disposition home or self-care (01) ==
PROVIDERS: PCP Specialist; Referring Provider Specialist; Visit Provider Radiology Diagnostic Radiology
DX: R55 Syncope and collapse (principal)
CPT/HCPCS: 36415; 70450; 80053; 83735; 84443; 84484; 85025; 85652; 86140

== ENCOUNTER → 2024-12-21 | Outpatient (CLI) | payer MEDICARE, BC, SELFPAY ==
[2024-12-21 10:31] LABS: Basophils # (Auto) 0.1 Thou/mm3 (0.0-0.2); Basophils % (Auto) 1 % (0-2.5); Eosinophils # (Auto) 0.1 Thou/mm3 (0.0-0.5); Eosinophils % (Auto) 1 % (0-10); Hematocrit 39.0 % (36.0-46.0); Hemoglobin 12.5 g/dL (12.0-16.0); Immature Granulocytes Auto 0.01 Thou/mm3 (0.00-0.00); Lymphocytes # (Auto) 1.8 Thou/mm3 (1.0-4.8); Lymphocytes % (Auto) 28 % (10-50); Mean Corpuscular HGB Conc 32.1 g/dl (31.0-37.0); Mean Corpuscular Hemoglobin 30.8 pg (25.0-35.0); Mean Corpuscular Volume 96 fL (80-100); Monocytes # (Auto) 0.6 Thou/mm3 (0.0-0.8); Monocytes % (Auto) 9 % (0-12); Neutrophils # (Auto) 3.9 Thou/mm3 (1.8-7.7); Neutrophils % (Auto) 61 % (37-80); Nucleated Red Blood Cell # 0.00 Thou/mm3 (0.00-0.00); Nucleated Red Blood Cell % 0 /100 WBC (0); Platelet Count 311 Thou/mm3 (140-440); RDW Standard Deviation 46.5 fL (36.4-46.3); Red Blood Count 4.06 Miln/mm3 (4.00-5.20); White Blood Count 6.5 Thou/mm3 (3.6-11.0)
[2024-12-21 10:43] LABS: Anion Gap 8 (7-16); BUN/Creatinine Ratio 16 Ratio (12-20); Blood Urea Nitrogen 18 mg/dL (9-23); Calcium 9.8 mg/dL (8.3-10.6); Carbon Dioxide 27.5 mMol/L (20.0-31.0); Chloride 105 mMol/L (98-107); Creatinine (Component) 1.1 mg/dL (0.6-1.3); Glucose 86 mg/dL (74-106); Osmolality,Calculated 280 (275-295); Potassium 4.4 mMol/L (3.4-5.1); Sodium 140 mMol/L (136-145); eGFR 54 See Note
[2024-12-21 10:59] LABS: INR 0.9 (0.9-1.3); Partial Thromboplastin Time 22.6 Seconds (22.0-36.0); Prothrombin Time 9.5 Seconds (9.0-12.2)
== END | disposition home or self-care (01) ==
LOC: COPL 09:18
PROVIDERS: PCP Specialist; Referring Provider Internal Medicine; Visit Provider Internal Medicine
DX: I25.10 Atherosclerotic heart disease of native coronary artery without angina pectoris (principal); I48.91 Unspecified atrial fibrillation
CPT/HCPCS: 36415; 80048; 85025; 85610; 85730

== ENCOUNTER → 2025-02-23 | Outpatient (CLI) | payer MEDICARE, BC, SELFPAY ==
[2025-02-23 13:18] LABS: Glucose Estimated Average 123 mg/dL (80-131); Hemoglobin A1C 5.9 % Hgb (4.8-6.0)
[2025-02-23 13:22] LABS: Creatinine MALB Rnd Ur 129 mg/dL (30-125); Microalbumin Creat Ratio 6 mg/gCrea (<30); Microalbumin, Random Urine 8 mg/L (0-300)
[2025-02-23 13:24] LABS: Alanine Aminotransferase 14 U/L (10-49); Albumin, Serum 4.6 gm/dL (3.4-4.8); Albumin/Globulin Ratio 1.8 (1.2-2.2); Alkaline Phosphatase 105 U/L (46-116); Anion Gap 10 (7-16); Aspartate Amino Transferase 20 U/L (0-34); BUN/Creatinine Ratio 20 Ratio (12-20); Bilirubin,Total 0.5 mg/dL (0.3-1.2); Blood Urea Nitrogen 22 mg/dL (9-23); Calcium 8.9 mg/dL (8.3-10.6); Calcium (Corrected) 8.9 mg/dL (8.5-10.1); Carbon Dioxide 26.2 mMol/L (20.0-31.0); Cardiac Risk Estimate 3.6 RATIO (3.7-5.6); Chloride 107 mMol/L (98-107); Cholesterol 181 mg/dL (132-200); Creatinine (Component) 1.1 mg/dL (0.6-1.3); Globulin 2.5 gm/dL (2.3-3.5); Glucose 93 mg/dL (74-106); HDL Cholesterol 50 mg/dL (40-60); LDL Cholesterol,Calculated 77 mg/dL (0-130); Osmolality,Calculated 288 (275-295); Potassium 4.0 mMol/L (3.4-5.1); Sodium 143 mMol/L (136-145); Total Protein 7.1 gm/dL (5.7-8.2); Triglycerides 272 mg/dL (30-150); eGFR 54 See Note
== END | disposition home or self-care (01) ==
LOC: COPL 12:05
PROVIDERS: PCP Specialist; Referring Provider Specialist; Visit Provider Specialist
DX: E11.65 Type 2 diabetes mellitus with hyperglycemia (principal); E78.2 Mixed hyperlipidemia
CPT/HCPCS: 36415; 80053; 80061; 82043; 82570; 83036